=== PATIENT | male | born 1970 | race Hispanic/Latino ===

== ENCOUNTER → 2024-06-04 | Outpatient (CLI) | payer OTHER ==
--- NOTE | 2024-06-06 13:06 | HMCSR ---
APPROVED REPORT EXAM: Two-dimensional and M-mode echocardiogram with Doppler and color Doppler. INDICATION ICD: I48.0 Chronic AF 2D Dimensions RVDd3.8 cmLVEF(%)64.9 (>50%)LVED Vol(simp.)74.2 mL IVSd0.6 (0.7-1.1cm)FS(%)35 %LVES Vol(simp.)26.3 mL LVDd4.8 (3.8-5.6cm)LA (2D)4.2 (1.6-4.0cm)LVEF(%, simp.)65 % PWd0.7 (0.7-1.1cm)Ao Root(2D)2.9 (2.0-3.7cm)LA ESV INDEX (4CH)19.90 mL/m2 IVSs1.0 cmLVOT diam1.9 (1.8-2.4cm)LA ESV INDEX (2CH)18.40 mL/m2 LVDs3.1 (2.5-4.0cm)LA ESV INDEX (BP)19.20 mL/m2 PWs1.3 cm M-Mode Dimensions EPSS0.5 cm LA (MM)4.4 (1.6-4.0cm) Ao Root(MM)2.8 (2.0-3.7cm) Aortic Valve AoV VTI0.3 mAo Mean GR5.0 mmHgLVOT VTI0.22 m MACKENZIE (VMAX)2.3 cm2AVA (VTI) 2.3 cm2 Mitral Valve MV E Vmax68.4 cm/sDECEL Phms691 ms MV A Vmax50.4 cm/sP 1/2 T48 ms E/A ratio1.4MVA (PHT)4.6 cm2 TDI E/E' Omieaz46.9E/E' Grzfecg87.2 Medial E' Peak V5.30 cm/sLateral E' Peak V6.10 cm/s Pulmonary Valve PV Vmax1.2 m/s PV Peak GR5.7 mmHg Tricuspid Valve RAP (EST) 3 mmHgRVSP3.0 mmHg Left Ventricle The left ventricle is normal size. There is normal left ventricular wall thickness. LVEF is 65-70%. Aj sullivan left ventricular diastolic function is normal. Right Ventricle The right ventricle is normal size. The right ventricular systolic function is normal. Atria The left atrium size is normal. The right atrium is mildly dilated. Aortic Valve The aortic valve is normal in structure. No aortic regurgitation is present. There is no aortic valvu lar stenosis. Mitral Valve The mitral valve is normal in structure. There is no mitral valve regurgitation noted. There is no mi tral valve stenosis. Tricuspid Valve The tricuspid valve is normal in structure. There is no tricuspid valve regurgitation noted. Pulmonic Valve The pulmonary valve is normal in structure. There is no pulmonic valvular regurgitation. Great Vessels The aortic root is normal in size. The IVC is normal in size and collapses >50% with inspiration. Pericardium There is no pericardial effusion. Other Information Quality : Adequate Conclusion The left ventricle is normal size. LVEF is 65-70%.
== END | disposition home or self-care (01) ==
LOC: RAH 14:40
PROVIDERS: ATTEND Internal Medicine Cardiovascular Disease
DX: I51.7 Cardiomegaly (principal); I48.0 Paroxysmal atrial fibrillation
CPT/HCPCS: 93306

== ENCOUNTER → 2024-09-21 | Outpatient (CLI) | payer OTHER ==
--- NOTE | 2024-09-21 14:43 | HMCIMG ---
CT calcium scoring Clinical Information: HEART SAVER SCREENING Comparison: None CT Dose Index (CTDI): 13.30 mGy Dose Length Product (DLP): 186.18 total mGy-cm Findings: Calcium score 0. No identifiable calcification. The CT scan is not a complete chest CT. Covered portion is reviewed for incidental findings. No incidental findings seen. IMPRESSION: Calcium score as above. Calcium score reference stable: 0: No identifiable calcification 1- 10: Minimal identifiable calcification 11-100: Mild calcification 101- 400: Moderate calcification 401 and above: Significant calcification Automated exposure control and adequate statistical iterative reconstructions were utilized as dose reduction techniques.
== END | disposition home or self-care (01) ==
LOC: RAH 13:56
PROVIDERS: ATTEND Physician Assistant Medical
DX: Z13.6 Encounter for screening for cardiovascular disorders (principal)
CPT/HCPCS: 75571